=== PATIENT | male | born 1990 | race African-American/Black ===

== ENCOUNTER 2024-04-28 19:06 | Emergency (ER) | payer OTHER ==
[~2024-04-28] VITALS: Ht 175.3 cm; Wt 65.9 kg
[2024-04-28 20:06] VITALS: TEMP 98
[2024-04-28] MEDS: OxyCODONE HCL 5 MG IR TABLET PO ONE (23:12)
[2024-04-28 23:14] VITALS: BP 131/70; PULSE 70; RESP 16; O2SAT 100
== END 2024-04-28 23:19 ==
LOC: EMS 19:06
DX: S60.221A Contusion of right hand, initial encounter (principal); S60.222A Contusion of left hand, initial encounter; W19.XXXA Unspecified fall, initial encounter; Y93.89 Activity, other specified; Y92.89 Other specified places as the place of occurrence of the external cause; Y99.8 Other external cause status
CPT/HCPCS: 99284; 73110-TC; 73130-TC; Z7502; Z7610